=== PATIENT | female | born 1950 | race Caucasian/White ===

== ENCOUNTER 2017-07-18 09:51 | Emergency (ER) | payer MEDICARE ==
[~2017-07-18] VITALS: Ht 160 cm; Wt 115.9 kg
[2017-07-18 09:56] VITALS: TEMP 98.1
[2017-07-18] MEDS ORDERED: NORCO 325 MG-51 TAB PO (10:51)
[2017-07-18 10:54] VITALS: BP 167/77; PULSE 78
== END 2017-07-18 10:59 | disposition home or self-care (01) ==
LOC: COL.ER 09:51
DX: S20.212A Contusion of left front wall of thorax, initial encounter (principal); I10 Essential (primary) hypertension; E03.9 Hypothyroidism, unspecified; J45.909 Unspecified asthma, uncomplicated; E66.01 Morbid (severe) obesity due to excess calories; Z68.41 Body mass index [BMI] 40.0-44.9, adult; W31.89XA Contact with other specified machinery, initial encounter
CPT/HCPCS: A9284

== ENCOUNTER 2020-12-01 09:44 | Inpatient (IN) | payer MEDICARE ==
[~2020-12-01] VITALS: Ht 160 cm; Wt 119.7 kg
[~2020-12-01 09:44] MED LIST: NORCO 325 MG-51 TAB PO
[2020-12-01 11:03] LABS: EOS # 0.4 (0.0-0.7); EOS % 7.7 % (0-4.0); GRAN # 2.6 (1.4-6.5); GRAN % 54.6 % (42.2-75.2); HEMATOCRIT 39.5 % (37.0-47.0); HEMOGLOBIN 13.1 g/dl (12.5-16.0); LYMPH # 1.4 (1.2-3.4); LYMPH % 29.6 % (20.0-51.0); MEAN CELL VOLUME 105 fl (80.0-100.0); MEAN CORPUSCULAR HEMOGLOBIN 35 pg (27.0-31.0); MEAN CORPUSCULAR HGB CONC 33 g/dl (33.0-37.0); MEAN PLATELET VOLUME 10.4 fl (7.4-10.4); MONO # 0.4 (0.1-0.6); MONO % 7.9 % (1.7-9.3); PLATELET COUNT 124 K/mm3 (130-400); RED BLOOD COUNT 3.75 M/mm3 (4.10-5.30); REDCELL DISTRIBUTION WIDTH-CV 15.1 % (11.5-14.5)
[2020-12-01 11:08] LABS: ALBUMIN 2.9 gm/dL (3.5-5.0); BILIRUBIN,TOTAL 3.7 mg/dL (0.0-1.0); CREATININE, serum 0.42 (0.52-1.25); TOTAL PROTEIN 7.1 gm/dL (6.4-8.2)
--- NOTE | 2020-12-01 14:30 | NUR ---
Patient up from ER by mark anthony. Alert and oriented x 3. Patient oriented to room. Complains of right knee pain. Edema to BLE +2. Patient able to move RLE on bed but state she is unable to lift. Tremors noted to BUE and head and BLE. Patient states she has difficulty eating at home, daughter helps. Denies needs at this time.
[2020-12-01] MEDS ORDERED: ASPIRIN 32325 MG/TAB PO (14:31)
--- NOTE | 2020-12-01 14:50 | NUR ---
Post void residual of 175, purewick changed at this time, pericare provided.
[2020-12-01 15:14] VITALS: BP 136/72
[2020-12-01 16:22] LABS: CHOLESTEROL RISK RATIO 2.8
[2020-12-01 16:45] LABS: COLLECTION METHOD CLEAN CATCH
[2020-12-01 16:49] LABS: INR 1.5 (0.8-3.0); PROTHROMBIN TIME 16.3 SECONDS (9.7-12.8)
[2020-12-01 16:53] LABS: MUCOUS Present /lpf; PH 8 (5-8); SQUAMOUS EPITHELIAL 0-2 /hpf; URINE APPEARANCE Clear; URINE BACTERIA Rare /hpf; URINE BILIRUBIN Negative (NEGATIVE); URINE BLOOD Negative (NEGATIVE); URINE COLOR Yellow; URINE GLUCOSE Negative (NEGATIVE); URINE KETONE Negative (NEGATIVE); URINE LEUKOCYTE ESTERASE Negative (NEGATIVE); URINE NITRATE Negative (NEGATIVE); URINE PROTEIN(semi-quant) Negative (NEGATIVE); URINE RBC 0-2 /hpf; URINE WBC 0-2 /hpf
[2020-12-01 16:53] LABS: THYROID STIMULATING HORMONE 25.6 uIU/mL (0.465-4.680)
--- NOTE | 2020-12-01 17:02 | NUR ---
Contacted Leni Andrews, patient has irritation to groin, new order for desenex powder.
[2020-12-01 17:32] LABS: IRON,SERUM 69 ug/dL (35-150)
[2020-12-01 17:42] LABS: TOTAL IRON BINDING CAPACITY 346 ug/dL (265-497)
--- NOTE | 2020-12-01 17:47 | NUR ---
Dr. Barnes in to see patient.
[2020-12-01 17:55] LABS: BILIRUBIN,DIRECT 0.6 mg/dL (0.0-0.4)
--- NOTE | 2020-12-01 18:11 | NUR ---
Patient to CT by bed.
--- NOTE | 2020-12-01 18:18 | NUR ---
Patient doing well throughout this afternoon. Daughter remains at bedside. Denies needs at this time. Will report off to fast food shift supervisor.
--- NOTE | 2020-12-01 18:31 | NUR ---
Patient back from radiology by bed.
[2020-12-01 19:42] VITALS: BP 155/69; PULSE 73; TEMP 98.1
--- NOTE | 2020-12-01 23:07 | NUR ---
Patient to floor, oriented to self and self cares, however is a poor historian and unable to validate medictaions. Son is currently on vacation; states her daughter is not involved in her care
[2020-12-02] VITALS (7 sets, daily range): BP systolic 121–163; BP diastolic 56–66; PULSE 69–73; TEMP 97.8–98.5
--- NOTE | 2020-12-02 04:50 | NUR ---
PATIENT HAD RESTFUL EVENING, PURE WICK USED WITH PATIENT SATISFACTION. NO NEEDS EXPRESSED EXCEPT TO CLEAN, TURN AND REPOSITION PATIENT.
[2020-12-02 07:12] LABS: BASO % 0.2 % (0.0-2.0); EOS # 0.5 (0.0-0.7); EOS % 9.1 % (0-4.0); GRAN # 2.7 (1.4-6.5); GRAN % 52.6 % (42.2-75.2); HEMATOCRIT 37.7 % (37.0-47.0); HEMOGLOBIN 12.8 g/dl (12.5-16.0); LYMPH # 1.5 (1.2-3.4); LYMPH % 30.4 % (20.0-51.0); MEAN CELL VOLUME 105 fl (80.0-100.0); MEAN CORPUSCULAR HEMOGLOBIN 36 pg (27.0-31.0); MEAN CORPUSCULAR HGB CONC 34 g/dl (33.0-37.0); MEAN PLATELET VOLUME 10.4 fl (7.4-10.4); MONO # 0.4 (0.1-0.6); MONO % 7.5 % (1.7-9.3); PLATELET COUNT 121 K/mm3 (130-400); REDCELL DISTRIBUTION WIDTH-CV 15.1 % (11.5-14.5)
[2020-12-02 07:15] LABS: INR 1.5 (0.8-3.0)
[2020-12-02 07:23] LABS: ALBUMIN 2.9 gm/dL (3.5-5.0); CALCIUM 7.7 mg/dL (8.4-10.2); CREATININE, serum 0.49 (0.52-1.25); MAGNESIUM 2.1 mg/dL (1.6-2.3); POTASSIUM 3.8 mmol/L (3.4-5.0); TOTAL PROTEIN 6.8 gm/dL (6.4-8.2)
[2020-12-02 07:37] LABS: IRON,SERUM 102 ug/dL (35-150)
[2020-12-02 07:47] LABS: TOTAL IRON BINDING CAPACITY 340 ug/dL (265-497)
--- NOTE | 2020-12-02 11:10 | NUR ---
Pt to MRI at this time.
--- NOTE | 2020-12-02 14:08 | NUR ---
Half Section Ironer met with the patient to complete intake. The patient lives in [place] with , Archie and daughter, Oneida. The patient has a walker and sometimes has difficulties with ADLs, Oneida or Archie assist. The patient has not seen a PCP in about 20 years. She was agreeable to setting up at [facility]. The [place] [facility] The patient does not have advanced directives but was interested in DPOA-HC form. Form provided. The patient was interested in applying for Medicaid and had questions about applying for social security (disablity). Mariela Upton Financial Counselor consulted. The patient plans to return home at discharge with her family. PT/OT ordered. JOB contacted [facility] to set up an appointment. The appointment is on December 23 at 2:30 pm. JOB collaborated the above information with the community relations assistant. Discharge disposition at this time: Home with family.
[2020-12-02 17:35] LABS: HEPATITIS B CORE AB,TOTAL Negative (()); HEPATITIS B SURFACE ANTIBODY <2.0 (()); HEPATITIS B SURFACE ANTIGEN Negative (Negative); HEPATITIS C VIRUS ANTIBODY Negative (Negative)
--- NOTE | 2020-12-02 18:39 | NUR ---
Pt had uneventful day, rested in bed between PT sessions. Ambulated with assistance of one and walker. Pain to knee controlled with Voltaren gel and monica wrap. Pure wick in place. Good UOP. No needs at this time. Call light within reach.
--- NOTE | 2020-12-02 21:14 | NUR ---
Patient sitting up in bed upon enter the room. Patient alert and oriented. Patient denies SOB, headache, dizziness, N/V or diarrhea. Patient reports pain to her right knee area 3 or 4 out of 10. PRN Tramadol given per pain. Voltaren gel applied to right knee area. All sheduled meds given per MAR. Purewick in place and draining clear yellow urine. Call light within reach. Patient denies any needs at this time.
[2020-12-03 03:47] VITALS: BP 126/68; PULSE 69; TEMP 97.8
--- NOTE | 2020-12-03 06:11 | NUR ---
Patient rested well throughout the night. VS stable. No acute distress noted. Call light within reach. Will give report to day shift nurse.
[2020-12-03 07:50] VITALS: BP 133/61; PULSE 73; TEMP 98
--- NOTE | 2020-12-03 09:20 | NUR ---
PT AOX4, PLEASANT, AIR QUALITY SPECIALIST EQUAL, STEADY GAIT WITH WALKER, BED ALARM ON, ASSISTED TO BATHROOM, EDUCATED ON MEDICATIONS GIVEN AND EDUCATED ON THEM, IN ROOM, CALL LIGHT WITHIN REACH, FRESH ICE WATER BROUGHT IN, PT REPORTS EDEMA IN BLE LESSENED, PT REPORTS NO PAIN IN BLE AT THIS TIME, PT REFUSED VOLTAREN GEL FOR KNEES AT THIS TIME.
[2020-12-03] MEDS ORDERED: ASPIRIN 81M81 MG/TA2 PO (09:56)
[2020-12-03] MEDS ORDERED: ALDACTONE50 MG PO (09:56)
[2020-12-03] MEDS ORDERED: VOLTAREN GEL 1%1 TU TP (09:58)
[2020-12-03] MEDS ORDERED: ULTRAM 50MG TAB50 MG PO (09:58)
[2020-12-03] MEDS ORDERED: LASIX 40MG TABL40 MG PO (09:58)
[2020-12-03] MEDS ORDERED: SYNTHROID0.05 MG/TA PO (09:59)
[2020-12-03] MEDS ORDERED: DESENEX TP (10:00)
[2020-12-03] MEDS ORDERED: B-121000 MCG PO (10:01)
--- NOTE | 2020-12-03 12:15 | NUR ---
PT DISCHARGE EDUCATION PROVIDED, IV REMOVED, PT ESCORTED OUT VIA WHEELCHAIR. EDUCATION PACKET LEFT AT HOSPITAL, CALLED PT AND PT'S WILL DOCK BOSS TOMORROW IN AM. PT HAD NO OTHER QUESTIONS OR CONCERNS.
--- NOTE | 2020-12-03 13:03 | NUR ---
Maintenance Mechanic Technician attended clinical rounds with the team and patient to discharge today. SW met with patient about discharge planning and Home Health services. Patient is interested in HH and selected [facility]. SW explained to patient that HH would not be able to see her until her appointment with Chiqui on 12/23. SW stressed the importance of primary care follow up and patient verbalized understanding. SW also discussed new medications with patient who states she has money to pay for them today. JOB again stressed the importance of follow up with both primary care and Mariela, Financial Counselor. JOB contacted Mariela who advised she will follow up with patient on Medicaid and Social Security. JOB then contacted Elizabeth at [facility] and faxed referral/discharge orders. Discharge Plan: Home with [facility].
--- NOTE | 2020-12-03 13:18 | NUR ---
First visit from the engine inspector. No needs right now.
[2020-12-04 03:08] LABS: HEPATITIS AB (HAV) IGG INDEX 0.71 Index (<=1.00)
[2020-12-04 15:23] LABS: ANTISMOOTH MUSCLE ANTIBODY Negative (Negative)
[2020-12-08 13:09] LABS: A/G RATIO (PEP) 0.69 (()); BETA GLOBULINS (PEP) 0.8 g/dL (0.7-1.2)
[2020-12-08 15:13] LABS: CERULOPLASMIN 24 mg/dL (20-60)
[2021-05-07] MEDS ORDERED: OMNICEF 300MG300 MG PO (10:25)
[2021-05-07] MEDS ORDERED: PROTONIX 40MG T40 MG PO (10:26)
[2021-05-07] MEDS ORDERED: LEVOXYL0.075 MG PO (10:28)
[2021-07-25] MEDS ORDERED: VITAMIN D (10:25)
[2021-07-25] MEDS ORDERED: ASPIRIN 81M81 MG/TA2 PO (10:26)
[2021-07-25] MEDS ORDERED: CENTRUM SILVER1 TA2 PO (10:26)
== END 2020-12-03 12:15 | disposition home health service (06) | DRG 433 ==
LOC: COL.ER 09:44 → MEDICAL 13:14
PROVIDERS: Internal Medicine Gastroenterology; Physician Assistant; ADMIT Family Medicine
DX: K74.60 Unspecified cirrhosis of liver (principal); K76.6 Portal hypertension; I85.10 Secondary esophageal varices without bleeding; I50.32 Chronic diastolic (congestive) heart failure; Z68.42 Body mass index [BMI] 45.0-49.9, adult; K75.81 Nonalcoholic steatohepatitis (NASH); D69.6 Thrombocytopenia, unspecified; D75.89 Other specified diseases of blood and blood-forming organs; E53.8 Deficiency of other specified B group vitamins; I11.0 Hypertensive heart disease with heart failure; M17.11 Unilateral primary osteoarthritis, right knee; G25.2 Other specified forms of tremor; E66.01 Morbid (severe) obesity due to excess calories; E03.9 Hypothyroidism, unspecified; R16.1 Splenomegaly, not elsewhere classified; G62.9 Polyneuropathy, unspecified; R29.6 Repeated falls; G31.9 Degenerative disease of nervous system, unspecified; G89.29 Other chronic pain; Z91.81 History of falling; N39.41 Urge incontinence
CPT/HCPCS: 99223-AI; 99233-AI; 99239; A9585; J3420; Q9967

== ENCOUNTER 2021-03-13 06:25 | Inpatient (IN) | payer MEDICARE ==
[~2021-03-13] VITALS: Ht 160.1 cm; Wt 114.1 kg
[2021-03-13] VITALS (9 sets, daily range): BP systolic 110–142; BP diastolic 43–83; PULSE 64–84; TEMP 97.9–98.1
[~2021-03-13 06:25] MED LIST changes: +ALDACTONE50 MG PO; +ASPIRIN 32325 MG/TAB PO; +ASPIRIN 81M81 MG/TA2 PO; +B-121000 MCG PO; +DESENEX TP; +LASIX 40MG TABL40 MG PO; +SYNTHROID0.05 MG/TA PO; +ULTRAM 50MG TAB50 MG PO; +VOLTAREN GEL 1%1 TU TP
[2021-03-13] MEDS ORDERED: IMODIUM A-D2 MG PO (06:45)
[2021-03-13 07:05] LABS: EOS # 0.8 (0.0-0.7); EOS % 13.3 % (0-4.0); GRAN # 2.5 (1.4-6.5); GRAN % 41.8 % (42.2-75.2); HEMATOCRIT 37.9 % (37.0-47.0); LYMPH % 34.4 % (20.0-51.0); MEAN CELL VOLUME 94 fl (80.0-100.0); MEAN CORPUSCULAR HEMOGLOBIN 30 pg (27.0-31.0); MEAN CORPUSCULAR HGB CONC 32 g/dl (33.0-37.0); MEAN PLATELET VOLUME 11.7 fl (7.4-10.4); MONO # 0.6 (0.1-0.6); MONO % 10.3 % (1.7-9.3); PLATELET COUNT 133 K/mm3 (130-400); RED BLOOD COUNT 4.05 M/mm3 (4.10-5.30); REDCELL DISTRIBUTION WIDTH-CV 16.4 % (11.5-14.5)
[2021-03-13 07:11] LABS: ALANINE AMINOTRANSFERASE 29 U/L (4-34); ALBUMIN 2.9 gm/dL (3.5-5.0); ALKALINE PHOSPHATASE 215 U/L (50-136); ANION GAP 7 mmol/L (7-16); AST,SGOT 61 U/L (15-37); BILIRUBIN,TOTAL 4.9 mg/dL (0.0-1.0); BLOOD UREA NITROGEN 5 mg/dL (7-17); CARBON DIOXIDE 20 mmol/L (22-30); CHLORIDE 112 mmol/L (98-107); CREATININE, serum 0.52 (0.52-1.25); GLUCOSE 91 mg/dL (74-106); SODIUM 139 mmol/L (137-145); TOTAL PROTEIN 7.2 gm/dL (6.4-8.2)
[2021-03-13 07:13] LABS: POTASSIUM 2.8 mmol/L (3.4-5.0)
[2021-03-13 08:05] LABS: CREATINE KINASE 67 U/L (30-135); MAGNESIUM 1.9 mg/dL (1.6-2.3)
[2021-03-13 08:06] LABS: C-REACTIVE PROTEIN < 0.5 mg/dL (0.0-0.9)
[2021-03-13 08:27] LABS: TROPONIN-I 0.026 ng/mL (0.000-0.035)
[2021-03-13] MEDS ORDERED: DIUREX PO (12:25)
--- NOTE | 2021-03-13 13:46 | NUR ---
elevated troponin reported to Leni BLACK, requested diet
--- NOTE | 2021-03-13 14:04 | NUR ---
CONSULT CALLED TO DR. APARICIO
--- NOTE | 2021-03-13 15:19 | NUR ---
RECIEVED VERBAL ORDERS FROM H[place]EN TO STOP CARDIZEM DRIP 2HR AFTER SOTALOL DOSE ADMINISTRATION
--- NOTE | 2021-03-13 17:49 | NUR ---
Pt refused meal delivered, mashed potatoes ordered in place of meal. 30% of mashed potatoes eaten.
--- NOTE | 2021-03-13 18:11 | NUR ---
Pt incontinent, garethwick utilized and placed at this time.
--- NOTE | 2021-03-13 18:30 | NUR ---
ERWIN MUHAMMAD DC'Kayleigh 1729, DESTINY BUTLER ON PT, LEGS ELEVATED, PT HAS TREMORS CHRONICALLY, PT DENIES PAIN/SOB, EATING DINNER BUT REPORTS ITS HARD TO FEED HERSELF DUE TO TREMORS, NO OTHER NEEDS AT THIS TIME.
--- NOTE | 2021-03-13 20:00 | NUR ---
Report received, assumed care for film processing shift supervisor. Assessment complete. A&Ox3-drowsy. Denies pain/nausea/shortness of breath/chest pain. TELE showing SR. Noted to have a stage 1 ulcer to right buttock. Plan of care discussed for this shift to include HS meds/calling for questions/concerns. Verbalizes understanding/denies needs. Call light in reach. Will monitor.
--- NOTE | 2021-03-14 03:46 | NUR ---
Called with c/o pain to left forearm INT. Noted to be bruised above and around site. DCd at this time cath intact. Tolerated well.
[2021-03-14 04:13] VITALS: BP 122/47; PULSE 63; TEMP 98.1
--- NOTE | 2021-03-14 06:03 | NUR ---
Rested well later this shift after receiving phenergan for nausea. VS remain stable. Denies nausea/shortness of breath/chest pain. Tele showed SR this shift. No s/s of distress noted at this time. Call light in reach. Will monitor.
[2021-03-14 06:12] LABS: HEMOGLOBIN 10.1 g/dl (12.5-16.0); MEAN CELL VOLUME 93 fl (80.0-100.0); MEAN CORPUSCULAR HEMOGLOBIN 29 pg (27.0-31.0); MEAN CORPUSCULAR HGB CONC 31 g/dl (33.0-37.0); MEAN PLATELET VOLUME 10.3 fl (7.4-10.4); PLATELET COUNT 124 K/mm3 (130-400); RED BLOOD COUNT 3.47 M/mm3 (4.10-5.30); REDCELL DISTRIBUTION WIDTH-CV 16.3 % (11.5-14.5)
[2021-03-14 06:14] LABS: HEMATOCRIT 32.4 % (37.0-47.0)
[2021-03-14 06:27] LABS: CALCIUM 7.4 mg/dL (8.4-10.2); CREATININE, serum 0.53 (0.52-1.25); MAGNESIUM 1.8 mg/dL (1.6-2.3)
[2021-03-14 06:29] LABS: POTASSIUM 2.9 mmol/L (3.4-5.0)
[2021-03-14 07:15] VITALS: BP 116/49; PULSE 64; TEMP 98.1
--- NOTE | 2021-03-14 07:50 | NUR ---
ASSISTED PT WITH REPOSITIONING IN BED, PT AOX3, PT PLEASANT, REPORTS PAIN IN LOW BACK, MEDICATIONS GIVEN, ASSESSMENT PERFORMED, NO OTHER NEEDS AT THIS TIME
--- NOTE | 2021-03-14 08:17 | NUR ---
NOTIFIED PHYSICIAN OF CRITICAL POTASSIUM, ORDERED TO PLACE PT ON POTASSIUM PROTOCOL, ORDER ENTERED
--- NOTE | 2021-03-14 11:47 | NUR ---
Sw met with the pt who stated her preference to return home with her daughter when she is medically stable. The pt lives at home with her daughter, Oneida (ph # [phone]). The pt states she is independent, but uses a walker. The pt informed Sw that she uses no DME. The pt informed Sw that she does not have a DPOA-HC at this time and would like to speak with Oneida first. She informed Sw that she does not have a PCP, but would like a list of them and gets her medications from [facility]. The pt informed Annemarie that she would like to get on medicare, but she would like to wait for her Oneida to explain more to me when she comes tomorrow. Sw will follow up with the pt tomorrow and Oneida to talk about PCP and medicare application. No other needs stated at this time. Sw to follow up as needed. D/c: Home with Daughter.
[2021-03-14 12:00] VITALS: BP 116/52; PULSE 63; TEMP 98.3
[2021-03-14 15:32] VITALS: BP 111/51; PULSE 64; TEMP 98.4
--- NOTE | 2021-03-14 17:13 | NUR ---
PT PLEASANT, AOX4, REPORTS SKIN ITCHING AND "RASH" BUT NO RASH NOTED. EDUCATED HER ON EFFECTS OF INC BILIRUBIN. PT REPOSITIONS HERSELF IN BED WHEN BED IS PLACED IN [place] POSITION. PT EATING WELL, DENIES PAIN/N/V/D, NO OTHER NEEDS. RAC INT CDI W/O ERYTHEMA NO OTHER NEEDS.
[2021-03-14 18:36] VITALS: BP 125/58; PULSE 69
--- NOTE | 2021-03-14 18:51 | NUR ---
RECIEVED CALL FROM TELE THAT PT IS IN AND OUT OF AFLUTTER. PT DENIES CHEST PAIN, SOB, AND LIGHT HEADEDNESS, VITALS OBTAINED AND NORMAL, STAT EKG ORDER PLACED . NALLELY NOTIFIED AND ORDERED LABS TOLD TO NOTIFY CARDIOLOGY IF THEY WOULD LIKE TO ADD ORDERS. DR. MELGOZA CALLED, NOTIFIED HIM OF SITUATION AND ORDERS PLACED AND HE HAD NO ORDERS TO ADD. NO OTHER NEEDS
[2021-03-14 19:45] VITALS: BP 127/47; PULSE 72; TEMP 98.4
[2021-03-14 20:01] LABS: HEMOGLOBIN 10.9 g/dl (12.5-16.0)
[2021-03-14 20:03] LABS: CALCIUM 7.7 mg/dL (8.4-10.2); CREATININE, serum 0.62 (0.52-1.25); MAGNESIUM 1.7 mg/dL (1.6-2.3); POTASSIUM 3.3 mmol/L (3.4-5.0)
[2021-03-14 20:05] LABS: HEMATOCRIT 34.8 % (37.0-47.0)
--- NOTE | 2021-03-14 23:06 | NUR ---
Shift assessment completed. Patient A/O x3. Patient denies any chest pain or discomfort. Denies SOB or dyspnea. BLE swollen. Elevated BLE on pillows. Right forearm IV site C/D/I. All scheduled meds given per OCT. Call light within reach. Will continue to monitor.
[2021-03-15] VITALS (7 sets, daily range): BP systolic 105–151; BP diastolic 44–120; PULSE 65–70; TEMP 97.7–98.8
--- NOTE | 2021-03-15 07:00 | NUR ---
Report with CATHRYN Bess. Pt resting in bed, awake and alert, denies needs at this time. Purewick catheter in place. Call light in reach.
[2021-03-15 07:11] LABS: EOS # 0.7 (0.0-0.7); EOS % 13.7 % (0-4.0); GRAN # 1.8 (1.4-6.5); GRAN % 34.5 % (42.2-75.2); HEMOGLOBIN 10.5 g/dl (12.5-16.0); LYMPH # 2.1 (1.2-3.4); LYMPH % 41.8 % (20.0-51.0); MEAN CELL VOLUME 93 fl (80.0-100.0); MEAN CORPUSCULAR HEMOGLOBIN 29 pg (27.0-31.0); MEAN CORPUSCULAR HGB CONC 32 g/dl (33.0-37.0); MEAN PLATELET VOLUME 11.8 fl (7.4-10.4); MONO # 0.5 (0.1-0.6); MONO % 9.8 % (1.7-9.3); PLATELET COUNT 121 K/mm3 (130-400); RED BLOOD COUNT 3.59 M/mm3 (4.10-5.30); REDCELL DISTRIBUTION WIDTH-CV 16.1 % (11.5-14.5)
[2021-03-15 07:18] LABS: HEMATOCRIT 33.2 % (37.0-47.0)
[2021-03-15 07:19] LABS: CALCIUM 7.3 mg/dL (8.4-10.2); CREATININE, serum 0.57 (0.52-1.25); POTASSIUM 3.3 mmol/L (3.4-5.0)
--- NOTE | 2021-03-15 09:00 | NUR ---
Assessment complete. Pt resting in bed, A&O x 4, denies pain at this time. Saline lock IV to right forearm patent without s/s of complications. Purewick catheter in place with low suction, dark yellow urine in cannister. Dressing over ulcer on right buttock CDI. Physical assessment otherwise unremarkable. No further needs reported. Call light in reach.
--- NOTE | 2021-03-15 18:50 | NUR ---
Report with CATHRYN Aleman. Pt resting in bed with eyes closed, resp even and unlabored. Call light in reach.
--- NOTE | 2021-03-15 21:43 | NUR ---
PATIENT IS RESTING IN BED.DUE MEDS GIVEN.DENIES PAIN.PATIENT HAS A PUREWICK IN PLACE.SAFETY MEASURES MAINTAINED.NO OTHER NEEDS AT THIS TIME.
[2021-03-16] VITALS (9 sets, daily range): BP systolic 114–141; BP diastolic 47–82; PULSE 63–72; TEMP 98–98.2
--- NOTE | 2021-03-16 05:34 | NUR ---
PATIENT HAD A CALM NIGHT.DENIES PAIN.PATIENT IS WORRIED ABOUT HOW THE STRESS TEST WILL BE DONE.TRIED TO EXPLAIN BUT STILL NEEDS MORE EDUCATION ABOUT IT BEFORE ITS DONE.SAFETY MEASURES IN PLACE.NO OTHER NEEDS AT THIS TIME.
[2021-03-16 07:18] LABS: EOS # 0.7 (0.0-0.7); EOS % 13.7 % (0-4.0); GRAN # 1.8 (1.4-6.5); GRAN % 38.6 % (42.2-75.2); HEMOGLOBIN 10.5 g/dl (12.5-16.0); LYMPH # 1.8 (1.2-3.4); LYMPH % 37.2 % (20.0-51.0); MEAN CELL VOLUME 93 fl (80.0-100.0); MEAN CORPUSCULAR HEMOGLOBIN 30 pg (27.0-31.0); MEAN CORPUSCULAR HGB CONC 32 g/dl (33.0-37.0); MEAN PLATELET VOLUME 10.8 fl (7.4-10.4); MONO # 0.5 (0.1-0.6); MONO % 10.3 % (1.7-9.3); PLATELET COUNT 127 K/mm3 (130-400); RED BLOOD COUNT 3.54 M/mm3 (4.10-5.30); REDCELL DISTRIBUTION WIDTH-CV 16.1 % (11.5-14.5)
[2021-03-16 07:29] LABS: CALCIUM 7.4 mg/dL (8.4-10.2); CREATININE, serum 0.56 (0.52-1.25); POTASSIUM 3.1 mmol/L (3.4-5.0)
--- NOTE | 2021-03-16 08:20 | NUR ---
This RN received a call from nuclear medicine stating they would be coming to get the patient around 0830 to perform a lexiscan. They asked if the patient could have a pull-up put on for her incontinence since they will not be able to use a purewik. This RN and the PCT provided incontinent care for the patient and placed a clean pull-up with a pad. Patient did well moving in the bed... This RN also discussed the placement of the loop recorder with the patient. Printed educational material was provided. Consent was signed for the procedure. Medications currently being held as the patient is NPO for her loop recorder placement.
[2021-03-16] MEDS ORDERED: BETAPACE 80MG80 MG PO (12:02)
[2021-03-16] MEDS ORDERED: ALDACTONE50 MG PO (12:03)
[2021-03-16] MEDS ORDERED: ASPIRIN 81M81 MG/TA2 PO ×2 (12:03)
[2021-03-16] MEDS ORDERED: LASIX 40MG TABL40 MG PO (12:04)
[2021-03-16] MEDS ORDERED: SYNTHROID0.05 MG/TA PO ×2 (12:04)
--- NOTE | 2021-03-16 12:34 | NUR ---
Initial visit attempt; Patient out of her room. Brim Raiser left her card letting patient know Brim Raiser was available for a visit.
[2021-03-16] MEDS ORDERED: CEPHALEXIN500 M1 PO (13:19)
--- NOTE | 2021-03-16 14:06 | NUR ---
The patient is ready to d/c today. The patient does not have a PCP. She has been scheduled at [facility] in [place] in the past, but did not go to her appointments. She is needing medication refills. JOB met with the patient to review d/c plan. The patient plans to return home with her daughter, Oneida, and son-in-law, Davonte. The patient reports that she will be able to afford her medications. The patient only has Medicare Part A. JOB discussed getting set up at [facility] again and the importance of going to her appointments. The patient verbalized understanding. JOB contacted [facility] in [place]. The earliest they could get her in was on 05/14 at 1020. JOB notified the decision unit rn and the PA. The patient is going to need to get into a provider sooner to be able to get her meds refilled. The patient's son-in-law, Davonte, then arrived to the hospital. JOB met with the patient and Elgin and updated him on the above. JOB discussed getting the patient established at the [facility] in [facility]. Elgin reports that they are open to getting the patient set up with anything she needs and would be able to transport her to the [facility] in [place]. JOB contacted and secured the patient an appointment on Tuesday, 03/26, at 1500. JOB updated Elgin of the appointment and wrote the changed appointment down on the patient's d/c orders. Davonte verbalized understanding. JOB faxed the patient's records to [facility] in [place]. The patient discharge back home with her daughter and son-in-law today, 03/16. No additional needs at this time.
[2021-05-07] MEDS ORDERED: OMNICEF 300MG300 MG PO (10:25)
[2021-05-07] MEDS ORDERED: PROTONIX 40MG T40 MG PO (10:26)
[2021-05-07] MEDS ORDERED: LEVOXYL0.075 MG PO (10:28)
[2021-07-25] MEDS ORDERED: VITAMIN D (10:25)
[2021-07-25] MEDS ORDERED: ASPIRIN 81M81 MG/TA2 PO (10:26)
[2021-07-25] MEDS ORDERED: CENTRUM SILVER1 TA2 PO (10:26)
[2021-07-30] MEDS ORDERED: LACTULOSE10 GM/153 PO (09:40)
== END 2021-03-16 14:10 | disposition home or self-care (01) | DRG 260 ==
LOC: COL.ER 06:25 → MEDICAL 08:34
PROVIDERS: Emergency Medicine Emergency Medical Services; Nurse Practitioner Family; Physician Assistant; ADMIT Student in an Organized Health Care Education/Training Program
PROC: 0JH632Z Insertion of Monitoring Device into Chest Subcutaneous Tissue and Fascia, Percutaneous Approach (ICD-10-PCS; principal; 2021-03-16)
DX: I48.91 Unspecified atrial fibrillation (principal); I50.23 Acute on chronic systolic (congestive) heart failure; I21.A1 Myocardial infarction type 2; A69.20 Lyme disease, unspecified; E87.6 Hypokalemia; D69.6 Thrombocytopenia, unspecified; E03.9 Hypothyroidism, unspecified; I11.0 Hypertensive heart disease with heart failure; E66.01 Morbid (severe) obesity due to excess calories; R32 Unspecified urinary incontinence; E53.8 Deficiency of other specified B group vitamins; G25.2 Other specified forms of tremor; E87.70 Fluid overload, unspecified; M17.11 Unilateral primary osteoarthritis, right knee; D75.89 Other specified diseases of blood and blood-forming organs; K75.81 Nonalcoholic steatohepatitis (NASH); L89.312 Pressure ulcer of right buttock, stage 2; T43.615A Adverse effect of caffeine, initial encounter; Z86.16 Personal history of COVID-19; K74.60 Unspecified cirrhosis of liver; Z98.51 Tubal ligation status; Z90.710 Acquired absence of both cervix and uterus; Z90.49 Acquired absence of other specified parts of digestive tract; Z79.82 Long term (current) use of aspirin
CPT/HCPCS: 99223-AI; 99233-AI; 99239; A9500; C1764; J1650; J1940; J2550; J2785; J3475; J3480

== ENCOUNTER 2021-03-26 04:21 | Emergency (ER) | payer SELFPAY ==
[~2021-03-26 04:21] MED LIST changes: +BETAPACE 80MG80 MG PO; +CEPHALEXIN500 M1 PO; +DIUREX PO; +IMODIUM A-D2 MG PO
[2021-03-26 04:36] LABS: EOS # 0.4 (0.0-0.7); EOS % 9.7 % (0-4.0); GRAN # 2.2 (1.4-6.5); GRAN % 50.4 % (42.2-75.2); HEMOGLOBIN 11.6 g/dl (12.5-16.0); LYMPH # 1.3 (1.2-3.4); LYMPH % 28.4 % (20.0-51.0); MEAN CELL VOLUME 91 fl (80.0-100.0); MEAN CORPUSCULAR HEMOGLOBIN 29 pg (27.0-31.0); MEAN CORPUSCULAR HGB CONC 32 g/dl (33.0-37.0); MEAN PLATELET VOLUME 12.9 fl (7.4-10.4); MONO # 0.5 (0.1-0.6); MONO % 11.3 % (1.7-9.3); PLATELET COUNT 142 K/mm3 (130-400); RED BLOOD COUNT 4.03 M/mm3 (4.10-5.30); REDCELL DISTRIBUTION WIDTH-CV 16.4 % (11.5-14.5)
[2021-03-26 04:38] LABS: HEMATOCRIT 36.6 % (37.0-47.0)
[2021-03-26 05:04] LABS: ALBUMIN 2.8 gm/dL (3.5-5.0); BILIRUBIN,TOTAL 4.3 mg/dL (0.0-1.0); CALCIUM 7.9 mg/dL (8.4-10.2); CREATININE, serum 0.57 (0.52-1.25); MAGNESIUM 1.9 mg/dL (1.6-2.3); TOTAL PROTEIN 6.7 gm/dL (6.4-8.2); TROPONIN-I 0.013 ng/mL (0.000-0.035)
[2021-03-26 08:40] VITALS: BP 145/68; PULSE 63
[2021-05-07] MEDS ORDERED: OMNICEF 300MG300 MG PO (10:25)
[2021-05-07] MEDS ORDERED: PROTONIX 40MG T40 MG PO (10:26)
[2021-05-07] MEDS ORDERED: LEVOXYL0.075 MG PO (10:28)
[2021-07-25] MEDS ORDERED: VITAMIN D (10:25)
[2021-07-25] MEDS ORDERED: ASPIRIN 81M81 MG/TA2 PO (10:26)
[2021-07-25] MEDS ORDERED: CENTRUM SILVER1 TA2 PO (10:26)
[2021-07-30] MEDS ORDERED: LACTULOSE10 GM/153 PO (09:40)
== END 2021-03-26 08:55 | disposition home or self-care (01) ==
LOC: COL.ER 04:21
PROVIDERS: Emergency Medicine
DX: R06.4 Hyperventilation (principal); R07.89 Other chest pain; M54.2 Cervicalgia; R20.2 Paresthesia of skin; I48.91 Unspecified atrial fibrillation; F41.9 Anxiety disorder, unspecified; Z79.899 Other long term (current) drug therapy; Z79.82 Long term (current) use of aspirin
CPT/HCPCS: J1630; J1885; Q9967

== ENCOUNTER 2021-11-27 20:20 | Emergency (ER) | payer SELFPAY ==
[~2021-11-27] VITALS: Ht 157.5 cm; Wt 114.1 kg
[~2021-11-27 20:20] MED LIST changes: +CENTRUM SILVER1 TA2 PO; +LACTULOSE10 GM/153 PO; +LEVOXYL0.075 MG PO; +OMNICEF 300MG300 MG PO; +PROTONIX 40MG T40 MG PO; +VITAMIN D
[2021-11-27 20:28] VITALS: TEMP 97.2
[2021-11-27 21:28] VITALS: BP 142/80; PULSE 80
== END 2021-11-27 21:25 | disposition home or self-care (01) ==
LOC: COL.ER 20:20
DX: S61.012A Laceration without foreign body of left thumb without damage to nail, initial encounter (principal); Z23 Encounter for immunization; W26.8XXA Contact with other sharp object(s), not elsewhere classified, initial encounter

== ENCOUNTER 2022-11-13 11:43 | Observation (INO) | payer MEDICARE ==
[~2022-11-13] VITALS: Ht 157.5 cm; Wt 126.5 kg
[2022-11-13 12:11] LABS: BASO % 0.1 % (0.0-2.0); EOS # 0.4 K/mm3 (0.0-0.7); EOS % 4.7 % (0.0-4.0); GRAN # 5.1 K/mm3 (1.4-6.5); HEMATOCRIT 38.6 % (37.0-47.0); HEMOGLOBIN 13.5 g/dl (12.5-16.0); LYMPH # 1.7 K/mm3 (1.2-3.4); LYMPH % 21.4 % (20.0-51.0); MEAN CELL VOLUME 101 fl (80.0-100.0); MEAN CORPUSCULAR HEMOGLOBIN 35 pg (27-31); MEAN CORPUSCULAR HGB CONC 35 g/dl (33.0-37.0); MEAN PLATELET VOLUME 10.3 fl (7.4-10.4); MONO # 0.8 K/mm3 (0.1-0.6); MONO % 10.3 % (1.7-9.3); PLATELET COUNT 143 K/mm3 (130-400); RED BLOOD COUNT 3.82 M/mm3 (4.10-5.30); REDCELL DISTRIBUTION WIDTH-CV 14.3 % (11.5-14.5)
[2022-11-13 12:19] LABS: INR 1.4 (0.8-3.0)
[2022-11-13 12:49] LABS: ALBUMIN 2.9 gm/dL (3.4-4.8); BILIRUBIN,TOTAL 3.7 mg/dL (0.2-1.2); CALCIUM 8.7 mg/dL (8.4-10.2); CREATININE, serum 0.82 mg/dL (0.57-1.11); POTASSIUM 4.1 mmol/L (3.5-4.5); TOTAL PROTEIN 6.1 gm/dL (6.2-8.1)
[2022-11-13 15:36] VITALS: BP 128/51; PULSE 66; TEMP 97.6
[2022-11-13] MEDS ORDERED: SYNTHROID0.125 MG/T PO (16:00)
[2022-11-13] MEDS ORDERED: ALDACTONE50 MG PO (16:02)
[2022-11-13] MEDS ORDERED: VITAMIN D 400400 IU PO (16:03)
[2022-11-13] MEDS ORDERED: XIFAXAN550 MG PO (16:04)
[2022-11-13] MEDS ORDERED: NATURAL IRON65 MG PO (16:05)
--- NOTE | 2022-11-13 16:32 | NUR ---
PT ADMITTED TO MEDICAL UNIT. ADMISSION INTAKE AND ASSESSMENT COMPLETED. MED REC UPDATED. PT ORIENTED TO ROOM. CALL LIGHT WITHIN REACH, BED ALARMS IN PLACE. PT DENIES ANY PAIN OR NEEDS. PT REQUESTING PUREWICK AT THIS TIME. INSTURCTED PT TO TRY USING BEDSIDE COMMODE FIRST, IF UNSUCCESSFUL WE CAN ATTEMPT PUREWICK USE. CONTINUING TO MONITOR.
--- NOTE | 2022-11-13 19:46 | NUR ---
assisted pt to bathroom, gait steady w 1 assist with walker. vss and tele in place. pt tolerating clears. heat rash present to ble. INT to RAC. pt denies needs at this time. call light in reach.
[2022-11-13 20:00] VITALS: BP 128/59; PULSE 70; TEMP 98.3
[2022-11-14 00:21] VITALS: BP 121/54; PULSE 68; TEMP 98.1
[2022-11-14 04:06] VITALS: BP 128/54; PULSE 68; TEMP 98.4
[2022-11-14 06:51] LABS: BASO % 0.1 % (0.0-2.0); EOS # 0.4 K/mm3 (0.0-0.7); EOS % 4.3 % (0.0-4.0); GRAN # 5.9 K/mm3 (1.4-6.5); GRAN % 66.3 % (42.2-75.2); HEMOGLOBIN 12.2 g/dl (12.5-16.0); LYMPH # 1.8 K/mm3 (1.2-3.4); LYMPH % 19.9 % (20.0-51.0); MEAN CELL VOLUME 100 fl (80.0-100.0); MEAN CORPUSCULAR HEMOGLOBIN 36 pg (27-31); MEAN CORPUSCULAR HGB CONC 36 g/dl (33.0-37.0); MEAN PLATELET VOLUME 10.3 fl (7.4-10.4); MONO # 0.8 K/mm3 (0.1-0.6); MONO % 8.8 % (1.7-9.3); PLATELET COUNT 133 K/mm3 (130-400); RED BLOOD COUNT 3.43 M/mm3 (4.10-5.30); REDCELL DISTRIBUTION WIDTH-CV 14.4 % (11.5-14.5)
[2022-11-14 06:57] LABS: HEMATOCRIT 34.3 % (37.0-47.0)
[2022-11-14 07:02] LABS: CALCIUM 8.2 mg/dL (8.4-10.2); CREATININE, serum 0.66 mg/dL (0.57-1.11); POTASSIUM 4.2 mmol/L (3.5-4.5)
[2022-11-14 08:13] VITALS: BP 124/53; PULSE 69; TEMP 98
--- NOTE | 2022-11-14 10:12 | NUR ---
PT RESTING IN BED UPON ENTERING ROOM. MORNING MEDICATIONS GIVEN. SHIFT ASSESSMENT COMPLETED. PT DENIES ANY PAIN OR NEEDS THIS MORNING. IVF INFUSING. CALL LIGHT WITHIN REACH. WILL CONTINUE TO MONITOR.
--- NOTE | 2022-11-14 12:33 | NUR ---
DISCHARGE INSTRUCTIONS GIVEN, AT BEDSIDE, ALL QUESTIONS ANSWERED. IV D/C. TELE D/C. PT BELONGS PACKED, ESCORTED DOWN BY [facility]IA [facility] STAFF. WILL D/C FROM SYSTEM.
--- NOTE | 2022-11-14 12:40 | NUR ---
THIS RN CONTACTED PT DAUGHTER, AMY, TO NOTIFY HER OF PT BEING +NOROVIRUS. INSTRUCED DAUGHTER TO ENCOURAGE FLUID INTAKE, WASH HANDS AFTER CONTACT WITH FECES, AND DISINFECT SURFACES FOR THE NEXT TWO WEEKS. DAUGHTER STATES SHE UNDERSTANDS PROTOCOL.
== END 2022-11-14 12:35 | disposition home or self-care (01) ==
LOC: COL.ER 11:43 → MEDICAL 13:39
PROVIDERS: Physician Assistant; ADMIT Student in an Organized Health Care Education/Training Program
DX: A08.11 Acute gastroenteropathy due to Norwalk agent (principal); K52.9 Noninfective gastroenteritis and colitis, unspecified; R19.5 Other fecal abnormalities; K62.5 Hemorrhage of anus and rectum; K76.0 Fatty (change of) liver, not elsewhere classified; I48.91 Unspecified atrial fibrillation; I50.32 Chronic diastolic (congestive) heart failure; E80.6 Other disorders of bilirubin metabolism; I85.10 Secondary esophageal varices without bleeding; I11.0 Hypertensive heart disease with heart failure; E66.01 Morbid (severe) obesity due to excess calories; R32 Unspecified urinary incontinence; G25.2 Other specified forms of tremor; E03.9 Hypothyroidism, unspecified; Z79.890 Hormone replacement therapy; Z79.899 Other long term (current) drug therapy
CPT/HCPCS: C9113; J7030; J7120

== ENCOUNTER 2022-11-20 11:03 | Inpatient (IN) | payer MEDICARE ==
[~2022-11-20] VITALS: Ht 157.5 cm; Wt 119.0 kg
[~2022-11-20 11:03] MED LIST changes: +NATURAL IRON65 MG PO; +SYNTHROID0.125 MG/T PO; +VITAMIN D 400400 IU PO; +XIFAXAN550 MG PO
[2022-11-20 11:35] LABS: BASO % 0.1 % (0.0-2.0); EOS # 0.5 K/mm3 (0.0-0.7); EOS % 5.1 % (0.0-4.0); GRAN # 5.7 K/mm3 (1.4-6.5); HEMOGLOBIN 10.8 g/dl (12.5-16.0); LYMPH # 1.9 K/mm3 (1.2-3.4); LYMPH % 21.2 % (20.0-51.0); MEAN CELL VOLUME 104 fl (80.0-100.0); MEAN CORPUSCULAR HEMOGLOBIN 36 pg (27-31); MEAN CORPUSCULAR HGB CONC 34 g/dl (33.0-37.0); MEAN PLATELET VOLUME 9.9 fl (7.4-10.4); MONO # 0.8 K/mm3 (0.1-0.6); PLATELET COUNT 157 K/mm3 (130-400); RED BLOOD COUNT 3.02 M/mm3 (4.10-5.30); REDCELL DISTRIBUTION WIDTH-CV 16.1 % (11.5-14.5)
[2022-11-20 11:36] LABS: HEMATOCRIT 31.5 % (37.0-47.0)
[2022-11-20 11:51] LABS: ALBUMIN 2.7 gm/dL (3.4-4.8); BILIRUBIN,TOTAL 3.3 mg/dL (0.2-1.2); C-REACTIVE PROTEIN 0.3 mg/dL (0.00-0.50); CALCIUM 8.1 mg/dL (8.4-10.2); CREATININE, serum 0.72 mg/dL (0.57-1.11); TOTAL PROTEIN 5.7 gm/dL (6.2-8.1)
[2022-11-20 12:06] LABS: COLLECTION METHOD CLEAN CATCH
[2022-11-20 12:14] LABS: INR 1.4 (0.8-3.0); PROTHROMBIN TIME 15.8 SECONDS (9.7-12.8)
[2022-11-20 12:31] LABS: MUCOUS Present (NOT PRESENT); SQUAMOUS EPITHELIAL 0-2 /hpf (0-10); URINE BACTERIA Many /hpf (NONE SEEN); URINE RBC 0-2 /hpf (0-2)
[2022-11-20 12:32] LABS: URINE APPEARANCE Clear (CLEAR/HAZY); URINE BLOOD 1+ (NEGATIVE); URINE COLOR Yellow (YELLOW); URINE GLUCOSE Negative (NEGATIVE); URINE KETONE Negative (NEGATIVE); URINE NITRATE Positive (NEGATIVE); URINE PROTEIN(semi-quant) Negative (NEGATIVE)
[2022-11-20 14:30] VITALS: BP 113/57; PULSE 63; TEMP 97.8
--- NOTE | 2022-11-20 17:37 | NUR ---
NEW ADMIT FROM THE ED. PATIENT HAS BEEN COMPLAINING OF BLACK STOOLS, AFTER STOPPING HER IRON FOR 4 DAYS. PATIENT IS ON CLEAR LIQUID DIET. WILL HAVE EGD TOMORROW OF UPPER GI WITH POSSIBLE BIOPSY. CONSENTS ARE SIGNED. VSS. PATIENT WEARING PUREWICK DUE TO BEING ON MULTIPLE DIURETICS AND IS NOT WELL ENOUGH TO STAND UP ON HER OWN TO THE COMMODE. COMPLAINS OF BILAT FOOT PAIN FROM SWELLING. AXOX4. VSS. BED ALARM ON.
[2022-11-20 19:43] VITALS: BP 118/55; PULSE 75; TEMP 97.7
[2022-11-21] VITALS (13 sets, daily range): BP systolic 111–140; BP diastolic 51–60; PULSE 65–77; TEMP 97.9–98.8
--- NOTE | 2022-11-21 05:00 | NUR ---
ASSESSMENT COMPLETE FOR THREAD INSPECTOR. PT HAD DIARRHEA MOST OF SHIFT. PT NPO AT MIDNIGHT. FALL PRECAUTIONS IN PLACE. BED ALARM ON. CALL LIGHT WITHIN REACH.
[2022-11-21 10:04] LABS: BASO % 0.2 % (0.0-2.0); EOS # 0.4 K/mm3 (0.0-0.7); EOS % 5.6 % (0.0-4.0); GRAN % 60.1 % (42.2-75.2); HEMATOCRIT 26.6 % (37.0-47.0); HEMOGLOBIN 9.3 g/dl (12.5-16.0); LYMPH # 1.5 K/mm3 (1.2-3.4); LYMPH % 22.9 % (20.0-51.0); MEAN CELL VOLUME 102 fl (80.0-100.0); MEAN CORPUSCULAR HEMOGLOBIN 35 pg (27-31); MEAN CORPUSCULAR HGB CONC 35 g/dl (33.0-37.0); MEAN PLATELET VOLUME 9.8 fl (7.4-10.4); MONO # 0.7 K/mm3 (0.1-0.6); MONO % 10.6 % (1.7-9.3); PLATELET COUNT 126 K/mm3 (130-400); RED BLOOD COUNT 2.62 M/mm3 (4.10-5.30); REDCELL DISTRIBUTION WIDTH-CV 15.8 % (11.5-14.5)
--- NOTE | 2022-11-21 12:12 | NUR ---
Senior Technical Analyst rounds: Senior Technical Analyst visit attempted. Doctor was with Patient.
--- NOTE | 2022-11-21 14:22 | NUR ---
SERGIO charting reviewed, agree with documentation. Rufino Haro RN
--- NOTE | 2022-11-21 14:28 | NUR ---
JOB met with pt, Etienne and dtr Rita present in the room. Pt reports she lives at home with Etienne, and dtr Oneida at [phone]. Pt reports she has a walker and shower chair and is independent on ADLs. PCP is Marnei Blanchard and gets medications from [facility]. Pt reports she does not have a DPOA-HC and would like one made. JOB witness and gave copies to pt and placed one in the Pt chart. Pt daughter, Rita would like to speak to medicare advocate at the hospital [id number] with also questions about Social sercurity. DC: Home, pending PT/OT winnie
--- NOTE | 2022-11-21 17:23 | NUR ---
PATIENT DID WELL IN EGD TODAY. NO ISSUES AFTER ANESTHESIA. VSS. PATIENT IS SBA TO BEDSIDE COMMODE. MULTIPLE BMS TODAY INCONTINENT AND CONTINENT. PATIENT IS TAKING LACTULOSE FOR HIGH LIVER ENZYMES AND IS ON MIRALAX PREP FOR COLONOSCOPY 11/22. PATIENT IS NOT IMPULSIVE AND IS EATING ALL MEALS, THOUGH IS ON CLEAR LIQUID DIET UNTIL AFTER PROCEDURES. WILL CONTINUE TO MONITOR. BED ALARM ON.
[2022-11-22] VITALS (7 sets, daily range): BP systolic 97–129; BP diastolic 50–60; PULSE 59–75; TEMP 98
[2022-11-22 06:38] LABS: MEAN CELL VOLUME 103 fl (80.0-100.0); MEAN CORPUSCULAR HGB CONC 34 g/dl (33.0-37.0); MEAN PLATELET VOLUME 9.8 fl (7.4-10.4); PLATELET COUNT 132 K/mm3 (130-400); RED BLOOD COUNT 2.66 M/mm3 (4.10-5.30); REDCELL DISTRIBUTION WIDTH-CV 15.9 % (11.5-14.5)
[2022-11-22 06:44] LABS: HEMATOCRIT 27.3 % (37.0-47.0); HEMOGLOBIN 9.3 g/dl (12.5-16.0); MEAN CORPUSCULAR HEMOGLOBIN 35 pg (27-31)
--- NOTE | 2022-11-22 13:15 | NUR ---
SERGIO charting reviewed, agree with documentation. CATHRYN Joya Clinical Instructor
--- NOTE | 2022-11-22 16:17 | NUR ---
Patient is discharged to go home with family. IV is discontinued. Patient denies any pain or discomfort at this time. Discharge instructions are reviewed with patient and family. Patient is escorted to her vehicle via wheelchair by this nurse. Patient's family is with her.
== END 2022-11-22 16:15 | disposition home or self-care (01) | DRG 433 ==
LOC: COL.ER 11:03 → MEDICAL 12:34 → EDBEDREQ 13:18 → MEDICAL 11-22 16:15
PROVIDERS: Family Medicine; Internal Medicine Gastroenterology; ADMIT Internal Medicine
PROC: 0DJ08ZZ Inspection of Upper Intestinal Tract, Via Natural or Artificial Opening Endoscopic (ICD-10-PCS; 2022-11-21)
PROC: 0DJD8ZZ Inspection of Lower Intestinal Tract, Via Natural or Artificial Opening Endoscopic (ICD-10-PCS; principal; 2022-11-22 11:00)
DX: K74.60 Unspecified cirrhosis of liver (principal); A69.20 Lyme disease, unspecified; K92.1 Melena; K76.6 Portal hypertension; E72.20 Disorder of urea cycle metabolism, unspecified; I50.32 Chronic diastolic (congestive) heart failure; R18.8 Other ascites; Z68.42 Body mass index [BMI] 45.0-49.9, adult; Z66 Do not resuscitate; R32 Unspecified urinary incontinence; K31.819 Angiodysplasia of stomach and duodenum without bleeding; K31.89 Other diseases of stomach and duodenum; K75.81 Nonalcoholic steatohepatitis (NASH); E80.6 Other disorders of bilirubin metabolism; E03.9 Hypothyroidism, unspecified; E66.01 Morbid (severe) obesity due to excess calories; D64.9 Anemia, unspecified; I11.0 Hypertensive heart disease with heart failure; I48.91 Unspecified atrial fibrillation; Z98.51 Tubal ligation status; Z90.710 Acquired absence of both cervix and uterus; Z90.89 Acquired absence of other organs; Z88.8 Allergy status to other drugs, medicaments and biological substances; Z79.890 Hormone replacement therapy; Z79.82 Long term (current) use of aspirin
CPT/HCPCS: C9113; J2405; J2704; J2765; J3010; J7120

== ENCOUNTER 2023-09-09 16:27 | Inpatient (IN) | payer MEDICARE ==
[~2023-09-09] VITALS: Ht 157.5 cm; Wt 116.0 kg
[2023-09-09 17:23] LABS: EOS # 0.2 K/mm3 (0.0-0.7); EOS % 2.6 % (0.0-4.0); GRAN # 5.2 K/mm3 (1.4-6.5); GRAN % 69.7 % (42.2-75.2); HEMATOCRIT 39.8 % (37.0-47.0); HEMOGLOBIN 13.5 g/dl (12.5-16.0); LYMPH # 1.4 K/mm3 (1.2-3.4); LYMPH % 18.8 % (20.0-51.0); MEAN CELL VOLUME 100 fl (80.0-100.0); MEAN CORPUSCULAR HEMOGLOBIN 34 pg (27-31); MEAN CORPUSCULAR HGB CONC 34 g/dl (33.0-37.0); MEAN PLATELET VOLUME 9.2 fl (7.4-10.4); MONO # 0.6 K/mm3 (0.1-0.6); MONO % 8.1 % (1.7-9.3); PLATELET COUNT 221 K/mm3 (130-400); RED BLOOD COUNT 3.98 M/mm3 (4.10-5.30); REDCELL DISTRIBUTION WIDTH-CV 14.6 % (11.5-14.5)
[2023-09-09 17:31] LABS: INR 1.5 (0.8-3.0); PROTHROMBIN TIME 15.7 SECONDS (9.7-12.8)
[2023-09-09 17:38] LABS: ALBUMIN 2.7 gm/dL (3.4-4.8); BILIRUBIN,TOTAL 3.8 mg/dL (0.2-1.2); CALCIUM 8.7 mg/dL (8.4-10.2); CREATININE, serum 0.94 mg/dL (0.57-1.11); POTASSIUM 4.1 mmol/L (3.5-4.5); TOTAL PROTEIN 6.7 gm/dL (6.2-8.1)
[2023-09-09] MEDS ORDERED: cefTRIAXone 1 G in Water For Injection,Sterile 10 ML IV SCH (18:00)
[2023-09-09 18:02] LABS: PH 5.5 (5.0-8.5); URINE APPEARANCE Cloudy (CLEAR/HAZY); URINE COLOR Yellow (YELLOW); URINE GLUCOSE Negative (NEGATIVE); URINE PROTEIN(semi-quant) Negative (NEGATIVE)
[2023-09-09 18:03] LABS: MUCOUS Present (NOT PRESENT); URINE BACTERIA Many /hpf (NONE SEEN); URINE BLOOD Negative (NEGATIVE); URINE KETONE TRACE (NEGATIVE); URINE NITRATE Negative (NEGATIVE); URINE RBC 0-2 /hpf (0-2)
[2023-09-09] MEDS ORDERED: cefTRIAXone 2 G in Water For Injection,Sterile 20 ML IV ONE (18:30)
[2023-09-09] MEDS ORDERED: NS 1,000 ML IV ONE ×2 (18:30→20:45)
[2023-09-09] MEDS ORDERED: Acetaminophen 325 MG TAB PO PRN (18:45)
[2023-09-09] MEDS ORDERED: Albuterol/Ipratropium 3 MG-0.5 MG/3 ML Neb Soln IH PRN (18:45)
[2023-09-09] MEDS ORDERED: Ondansetron 4 MG/2 ML VIAL IV PRN (18:45)
[2023-09-09] MEDS ORDERED: Lactulose Oral Soln 10 GM/15 ML CUP PO SCH (21:00)
[2023-09-09] MEDS ORDERED: Spironolactone 25 MG TAB PO SCH (21:00)
[2023-09-09 21:09] VITALS: BP 135/47; PULSE 64; TEMP 97.5
--- NOTE | 2023-09-09 21:15 | NUR ---
Pt arrived to medical unit; room 356. She is A&Ox4. Admision and physical assessent were completed. LCTA. Abdomen with BS in all 4 quadrants, reports to this nurse that last BM was on 09/08. Pt has a RAC peripheral line. Fluids running at this time per orders. Pt reports having bladder incontinence. Pt also reports having her lower back and her bottom sore due to laying on her back for prolongued period of time in the ER. Pillow underneath her right side helped with the discomfort. Pt has glasses and has difficulty with bilateral hearing. RLE, thigh has some small abrassions that are currently healing. Pt reports that her daughter Oneida is her main contact and her # . VSS. Pt able to verbalize her needs. Belongings and call light are within reach.
[2023-09-09 23:59] VITALS: BP 133/58; PULSE 72; TEMP 98.2
[2023-09-10] VITALS (13 sets, daily range): BP systolic 93–133; BP diastolic 45–74; PULSE 73–87; TEMP 97.5–98.4
--- NOTE | 2023-09-10 06:25 | NUR ---
Pt had a moderate amount of hard black stool this morning. Pt had two episodes of bladder incontinence during this shift.
--- NOTE | 2023-09-10 07:52 | NUR ---
Bedside report recieved from KARLIE Loza. Pt is currently awake in bed with no complaints. Call light within reach.
--- NOTE | 2023-09-10 07:54 | NUR ---
I AGREE WITH THE ADULT ADMISSION ASSESSMENT COMPLETED BY BLAYNE VELASQUEZ LPN.
--- NOTE | 2023-09-10 08:42 | NUR ---
Shift assessment completed. Pt is awake in bed at this time visiting with family at bedside. Morning medications administered per EMAR. VSS. INT to Rt forearm patent with no redness, swelling, or drainage. Pt has no complaints of pain at this time. Pt has had incontinence of bowel movement. Pt has no request at this time. Call light within reach and fall precautions in place.
[2023-09-10 08:54] LABS: BASO % 0.1 % (0.0-2.0); EOS # 0.2 K/mm3 (0.0-0.7); EOS % 2.8 % (0.0-4.0); GRAN # 4.7 K/mm3 (1.4-6.5); GRAN % 64.4 % (42.2-75.2); LYMPH # 1.5 K/mm3 (1.2-3.4); LYMPH % 20.3 % (20.0-51.0); MEAN CELL VOLUME 101 fl (80.0-100.0); MEAN CORPUSCULAR HEMOGLOBIN 35 pg (27-31); MEAN CORPUSCULAR HGB CONC 34 g/dl (33.0-37.0); MEAN PLATELET VOLUME 9.2 fl (7.4-10.4); MONO # 0.9 K/mm3 (0.1-0.6); MONO % 11.9 % (1.7-9.3); PLATELET COUNT 186 K/mm3 (130-400); RED BLOOD COUNT 3.47 M/mm3 (4.10-5.30)
[2023-09-10 08:59] LABS: HEMATOCRIT 35.2 % (37.0-47.0)
[2023-09-10] MEDS ORDERED: Lactulose Oral Soln 10 GM/15 ML CUP PO SCH ×2 (09:00→14:00)
[2023-09-10] MEDS ORDERED: Furosemide 40 MG TAB PO SCH (09:00)
[2023-09-10 09:11] LABS: ALBUMIN 2.5 gm/dL (3.4-4.8); BILIRUBIN,TOTAL 3.3 mg/dL (0.2-1.2); CALCIUM 8.2 mg/dL (8.4-10.2); CREATININE, serum 0.82 mg/dL (0.57-1.11); MAGNESIUM 2.1 mg/dL (1.6-2.6); POTASSIUM 3.7 mmol/L (3.5-4.5); TOTAL PROTEIN 5.9 gm/dL (6.2-8.1)
[2023-09-10 11:05] LABS: COLLECTION METHOD CATHETER
--- NOTE | 2023-09-10 16:07 | NUR ---
Dr. Medina notified of pt recent blood pressure of 96/60. No new orders at this time. Call light within reach.
--- NOTE | 2023-09-10 16:48 | NUR ---
Clothing Designer met with patient to discuss discharge planning. Patient lives in [place] with her spouse, Archie along with her daughter Oneida, son in law Davonte, and two adult grandchildren. Patient advised she has no PCP at this time. Patient uses an electric wheelchair for ambulation and does report needing some assistance with ADLS, which her family provides. Patient does not drive and relies on her family for transportation. SW has DPOA-HC in EMR designating her spouse Etienne "Archie" and daughter, Oneida (ph#[phone]). SW contacted patient's daughter, Oneida who advised patient has Medicare PT A, but has never been able to get signed up for PT B despite their best effort. JOB consulted Linda Financial Counselor via email. Oneida confirmed she assists with ADLS and also cares for her father, Archie as she promised her parents not to place them in a senior living. Patient was seeing Marnie Blanchard APRN at [facility] but Oneida reports they are in the process of looking for a new provider as they were not happy with her care. JOB discussed PT recommendation, but that primary care would need to be established before Home Health could be set up. Oneida verbalized understanding. Discharge Plan: Home, needs set up with PCP, possibly Home Health once that is established.
--- NOTE | 2023-09-10 19:04 | NUR ---
Stool occult results notified to Keny BLACK by telephone. No new orders.
--- NOTE | 2023-09-10 21:30 | NUR ---
Patient getting back in bed from bathroom. Denies any pain or needs at this time. Assessment complete. IV in right forearm flushes easily with no complications. Call light and personal items in reach. Bed in low position and bed alarm on.
[2023-09-11] VITALS (12 sets, daily range): BP systolic 97–108; BP diastolic 57–70; PULSE 62–69; TEMP 97.5–98.1
--- NOTE | 2023-09-11 06:00 | NUR ---
Patient resting in bed. Denies any pain or needs this morning. No changes over night. Call light and personal items in reach. Bed in low position and bed alarm on.
--- NOTE | 2023-09-11 06:55 | NUR ---
Bedside report recieved from CATHRYN Bergeron. Pt is awake in bed with no complaints at this time. Call light within reach.
[2023-09-11 07:09] LABS: BASO % 0.1 % (0.0-2.0); EOS # 0.4 K/mm3 (0.0-0.7); EOS % 4.3 % (0.0-4.0); GRAN # 5.1 K/mm3 (1.4-6.5); GRAN % 58.3 % (42.2-75.2); HEMOGLOBIN 11.6 g/dl (12.5-16.0); LYMPH # 2.1 K/mm3 (1.2-3.4); LYMPH % 24.4 % (20.0-51.0); MEAN CELL VOLUME 100 fl (80.0-100.0); MEAN CORPUSCULAR HEMOGLOBIN 34 pg (27-31); MEAN CORPUSCULAR HGB CONC 34 g/dl (33.0-37.0); MEAN PLATELET VOLUME 9.4 fl (7.4-10.4); MONO # 1.1 K/mm3 (0.1-0.6); MONO % 12.4 % (1.7-9.3); PLATELET COUNT 181 K/mm3 (130-400); RED BLOOD COUNT 3.39 M/mm3 (4.10-5.30); REDCELL DISTRIBUTION WIDTH-CV 15.5 % (11.5-14.5)
[2023-09-11 07:15] LABS: HEMATOCRIT 33.9 % (37.0-47.0)
[2023-09-11 07:35] LABS: ALBUMIN 2.3 gm/dL (3.4-4.8); CREATININE, serum 0.79 mg/dL (0.57-1.11); MAGNESIUM 2.1 mg/dL (1.6-2.6); POTASSIUM 3.6 mmol/L (3.5-4.5); TOTAL PROTEIN 5.5 gm/dL (6.2-8.1)
--- NOTE | 2023-09-11 08:52 | NUR ---
Shift assessment completed. Pt is awake in bed eating breakfast at this time. VSS. Pt has had one loose incontinent stool this AM. Pt has no reports of pain at this time. Medications administered per emar. Pt has no request at this time. INT to Rt AC patent with no redness, swelling, or drainage. Call light within reach and fall precautions in place.
--- NOTE | 2023-09-11 15:47 | NUR ---
SW attempted to visit with patient on exploring if she had opporunity to review the PCP list. Patient was resting. SW will leave update with SW/team on exploring with patient and spouse on HH and/or SNF option.
--- NOTE | 2023-09-11 18:53 | NUR ---
Report given to CATHRYN Bergeron.
--- NOTE | 2023-09-11 20:15 | NUR ---
Patient resting in bed. Denies any pain at this time. Assissted patient to bathroom and back to bed, denies any other needs. Assessment complete. IV in right forearm flushes easily with no complications. Call light and personal items in reach. Bed in low position and bed alarm on.
[2023-09-12] VITALS (7 sets, daily range): BP systolic 104–120; BP diastolic 55–71; PULSE 68–75; TEMP 97.5–97.8
[2023-09-12 07:37] LABS: BASO % 0.1 % (0.0-2.0); EOS # 0.4 K/mm3 (0.0-0.7); EOS % 5.8 % (0.0-4.0); GRAN % 54.5 % (42.2-75.2); HEMATOCRIT 34.5 % (37.0-47.0); HEMOGLOBIN 11.8 g/dl (12.5-16.0); LYMPH % 26.9 % (20.0-51.0); MEAN CELL VOLUME 99 fl (80.0-100.0); MEAN CORPUSCULAR HEMOGLOBIN 34 pg (27-31); MEAN CORPUSCULAR HGB CONC 34 g/dl (33.0-37.0); MEAN PLATELET VOLUME 9.4 fl (7.4-10.4); MONO # 0.9 K/mm3 (0.1-0.6); MONO % 12.3 % (1.7-9.3); PLATELET COUNT 170 K/mm3 (130-400); RED BLOOD COUNT 3.47 M/mm3 (4.10-5.30); REDCELL DISTRIBUTION WIDTH-CV 15.4 % (11.5-14.5)
--- NOTE | 2023-09-12 08:00 | NUR ---
Patient is resting in bed, alert and oriented x 4, VSS, denies any pain at this time. Assessment completed, meds given. No further needs at this time. Call light within reach.
[2023-09-12 08:09] LABS: ALBUMIN 2.4 gm/dL (3.4-4.8); BILIRUBIN,TOTAL 2.9 mg/dL (0.2-1.2); CALCIUM 8.2 mg/dL (8.4-10.2); CREATININE, serum 0.73 mg/dL (0.57-1.11); POTASSIUM 3.7 mmol/L (3.5-4.5); TOTAL PROTEIN 5.8 gm/dL (6.2-8.1)
[2023-09-12] MEDS ORDERED: XIFAXAN550 MG PO (12:38)
[2023-09-12] MEDS ORDERED: LACTULOSE10 GM/153 PO (12:39)
[2023-09-12] MEDS ORDERED: Fosfomycin 3 G PACKET PO ONE (12:45)
[2023-09-12] MEDS ORDERED: Lactulose Oral Soln 10 GM/15 ML CUP PO SCH (13:00)
--- NOTE | 2023-09-12 14:23 | NUR ---
Patient was provided with discharge information, all questions answered. IV access and telemetry were discontinued.
--- NOTE | 2023-09-12 16:43 | NUR ---
home support worker was informed pt would need HH or SNF. Pt only has Medicare Part A insurance and is set to discharge today per Dr. Medina so she will not qualify for SNF. Pt does Part A insurance does not qualify for HH and she does not have a PCP to follow. List previosuly given by weekend worker. JOB spoke with Oneida shaw who reports the liver specialist attempted to contact the [employer] roto mixer operator to get coupons and has not followed up since. She reports that was a few months ago. JOB spoke with pharmacy [facility] who says they do not have coupons for that medication. JOB informed Fianancial Advisor pt needs an FAA for a FWW. She informed SW by the time she saw her, she had been discharged. JOB informed Dr. Medina pt does have a 4WW, dtr confirmed this on the phone. JOB Shell informed JOB that pt was declined for Medicaid. Discharge Plan: Home with family support
== END 2023-09-12 14:30 | disposition home or self-care (01) | DRG 689 ==
LOC: COL.ER 16:27 → MEDICAL 18:29
PROVIDERS: Hospitalist; Physician Assistant; ADMIT Internal Medicine
DX: N39.0 Urinary tract infection, site not specified (principal); G93.41 Metabolic encephalopathy; K76.82 Hepatic encephalopathy; I48.91 Unspecified atrial fibrillation; K74.60 Unspecified cirrhosis of liver; E03.9 Hypothyroidism, unspecified; R53.81 Other malaise
CPT/HCPCS: G0378; J0696; J7030

== ENCOUNTER 2023-11-15 13:32 | Observation (INO) | payer MEDICARE ==
[~2023-11-15] VITALS: Ht 152.4 cm; Wt 122.3 kg
[2023-11-15 14:12] LABS: EOS # 0.3 K/mm3 (0.0-0.7); EOS % 5.2 % (0.0-4.0); GRAN # 3.2 K/mm3 (1.4-6.5); HEMATOCRIT 42.4 % (37.0-47.0); HEMOGLOBIN 13.9 g/dl (12.5-16.0); LYMPH # 1.2 K/mm3 (1.2-3.4); LYMPH % 22.7 % (20.0-51.0); MEAN CELL VOLUME 102 fl (80.0-100.0); MEAN CORPUSCULAR HEMOGLOBIN 33 pg (27-31); MEAN CORPUSCULAR HGB CONC 33 g/dl (33.0-37.0); MEAN PLATELET VOLUME 11.1 fl (7.4-10.4); MONO # 0.5 K/mm3 (0.1-0.6); MONO % 9.7 % (1.7-9.3); PLATELET COUNT 128 K/mm3 (130-400); RED BLOOD COUNT 4.16 M/mm3 (4.10-5.30); REDCELL DISTRIBUTION WIDTH-CV 15.9 % (11.5-14.5)
[2023-11-15 14:24] LABS: ALANINE AMINOTRANSFERASE 24 U/L (0-55); ALBUMIN 2.6 gm/dL (3.4-4.8); ALKALINE PHOSPHATASE 126 U/L (40-150); ANION GAP 10 mmol/L (7-16); AST,SGOT 36 U/L (5-34); BILIRUBIN,TOTAL 2.8 mg/dL (0.2-1.2); BLOOD UREA NITROGEN 14 mg/dL (10-20); CALCIUM 8.5 mg/dL (8.4-10.2); CHLORIDE 110 mmol/L (98-107); CREATININE, serum 0.74 mg/dL (0.57-1.11); GLUCOSE 116 mg/dL (70-99); LIPASE 31 U/L (8-78); SODIUM 141 mmol/L (136-145); TOTAL PROTEIN 6.3 gm/dL (6.2-8.1)
[2023-11-15 14:30] LABS: TROPONIN-I < 0.010 ng/mL (0.00-0.033)
[2023-11-15 14:30] LABS: COLLECTION METHOD CLEAN CATCH
[2023-11-15 14:49] LABS: PH 7.5 (5.0-8.5); URINE APPEARANCE CLEAR (CLEAR/HAZY); URINE BLOOD NEGATIVE (NEGATIVE); URINE COLOR YELLOW (YELLOW); URINE GLUCOSE NEGATIVE (NEGATIVE); URINE KETONE NEGATIVE (NEGATIVE); URINE NITRATE NEGATIVE (NEGATIVE); URINE PROTEIN(semi-quant) NEGATIVE (NEGATIVE)
[2023-11-15] MEDS ORDERED: Polyethylene Glycol 3350 17 GM PDS PO PRN (16:30)
[2023-11-15] MEDS ORDERED: Docusate Sodium 100 MG CAP PO PRN (16:30)
[2023-11-15] MEDS ORDERED: Ondansetron 4 MG/2 ML VIAL IV PRN (16:30)
[2023-11-15] MEDS ORDERED: Lactulose Oral Soln 10 GM/15 ML CUP PO SCH (17:00)
[2023-11-15 18:00] VITALS: BP_SYST 110
--- NOTE | 2023-11-15 18:30 | NUR ---
PT ON THE FLOOR APPROX 1730 VIA STRETCHER. PT DENIES PAIN OR SHORTNESS OF BREATH AT THIS TIME. PT ORIENTED X4 AND INTAKE DONE. INT TO RIGHT FOREARM PATENT. BARKER DRAINING WITHOUT COMPLICATIONS. VITALS STABLE. PT ORIENTED TO ROOM. MED REC DONE PER CARPENTER HELPER. DINNER ORDERED AND PT DENIES NEEDS. BED IN LOWEST POSITION, CALL LIGHT IN REACH, BED ALARM ON
[2023-11-15 19:17] VITALS: BP 119/82; PULSE 85; TEMP 98.2
[2023-11-15 19:33] VITALS: BP 148/62; PULSE 65; TEMP 97.9
[2023-11-15] MEDS ORDERED: Spironolactone 25 MG TAB PO SCH (21:00)
[2023-11-15 21:34] VITALS: BP_SYST 148
--- NOTE | 2023-11-15 22:02 | NUR ---
ASSESSMENT COMPLETE. REAPPLIED SCDs. PROVIDED FRESH WATER AND EXTRA BLANKETS. DENIES ANY PAIN AT REST BUT IS REPORTING DISCOMFORT ON PALPATION OF BILATERAL LEGS. ADVISED PATIENT THAT WHEN SHE FEELS THE URGE TO HAVE A BOWEL MOVEMENT TO LET STAFF KNOW SO WE CAN ASSIST HER TO THE BEDSIDE COMMODE.
[2023-11-15 23:00] VITALS: BP 116/70; PULSE 69; TEMP 97.7
[2023-11-16] VITALS (8 sets, daily range): BP systolic 113–139; BP diastolic 66–76; PULSE 67–77; TEMP 97.7–98.4
--- NOTE | 2023-11-16 08:00 | NUR ---
Patient laying in bed, A&Ox3. VSS. IV CDI. Reports lower back pain. Patients HOB elevated, pillow to lower back. Rangel intact. SCD bilateral legs. Call light within reach. Bed alarm on
[2023-11-16 08:59] LABS: BASO % 0.2 % (0.0-2.0); EOS # 0.4 K/mm3 (0.0-0.7); EOS % 6.4 % (0.0-4.0); GRAN # 3.3 K/mm3 (1.4-6.5); GRAN % 55.3 % (42.2-75.2); HEMATOCRIT 39.7 % (37.0-47.0); HEMOGLOBIN 13.7 g/dl (12.5-16.0); LYMPH # 1.4 K/mm3 (1.2-3.4); LYMPH % 24.3 % (20.0-51.0); MEAN CORPUSCULAR HEMOGLOBIN 34 pg (27-31); MEAN CORPUSCULAR HGB CONC 35 g/dl (33.0-37.0); MEAN PLATELET VOLUME 10.5 fl (7.4-10.4); MONO # 0.8 K/mm3 (0.1-0.6); MONO % 13.5 % (1.7-9.3); PLATELET COUNT 127 K/mm3 (130-400); RED BLOOD COUNT 4.08 M/mm3 (4.10-5.30)
[2023-11-16 09:00] LABS: MEAN CELL VOLUME 97 fl (80.0-100.0)
[2023-11-16] MEDS ORDERED: Influenza Virus Vaccine, Hi-Dose Quad '23-24 (65 YR+) 0.7 ML SYRINGE IM SCH (09:00)
[2023-11-16] MEDS ORDERED: Furosemide 40 MG TAB PO SCH (09:00)
[2023-11-16] MEDS ORDERED: Ferrous Sulfate 325 MG TAB PO SCH (09:00)
[2023-11-16] MEDS ORDERED: Lidocaine 4% Topical Patch TP SCH (09:00)
[2023-11-16 09:07] LABS: INR 1.4 (0.8-3.0)
[2023-11-16 09:17] LABS: ALBUMIN 2.5 gm/dL (3.4-4.8); BILIRUBIN,TOTAL 2.8 mg/dL (0.2-1.2); CALCIUM 8.7 mg/dL (8.4-10.2); CREATININE, serum 0.7 mg/dL (0.57-1.11); POTASSIUM 3.8 mmol/L (3.5-4.5)
--- NOTE | 2023-11-16 12:47 | NUR ---
Initial visit; Patient thanked Restaurant Assistant Manager for looking in on her and offering God's blessings. Physical Therapy waiting outside of room so Chapplain wished Bianka well and will see her tomorrow for a visit and prayer.
--- NOTE | 2023-11-16 16:24 | NUR ---
Elevator Installer contacted Financial Counseling who advised patient has Medicare PT A. SW met with patient to discuss discharge planning. Patient stated she lives with her spouse, Archie along with her daughter, Oneida (ph#[phone]) and son in law, Davonte. Patient has recently seen Dr. Powell but can't remember the name of her PCP. Patient stated she has a walker at home but may need a wheelchair. Patient receives assistance with ADLS from her family and stated they also take her to medical appointments. Patient is unsure if she has DPOA-HC completed. Patient stated she wants to return home at time of discharge. SW attempted to contact patient's daughter, Oneida and left a message. Discharge Plan; Home
[2023-11-17] VITALS: BP 122/76; PULSE 77; TEMP 97.6
--- NOTE | 2023-11-17 03:56 | NUR ---
NURSING SHIFT ASSESSMENT COMPLETED. THE PATIENT WAS ALERT AND ORIENTED AND APPROPRIATE. THE PATIENT IS HAVING DIARRHEA CAUSED BY THE LACTULOSE. THE PATIENT IS INCONTINENT AT TIMES D/T URGENCY OF THE DIARRHEA. THE PLAN OF CARE AND EVENING MEDICATIONS REVIEWED. CALL LIGHT AND PERSONAL BELONGINGS WITHIN REACH. BED IN LOW POSITION AND BED ALARM ON.
[2023-11-17 05:00] VITALS: BP 125/65; PULSE 73; TEMP 97.7
[2023-11-17 06:58] LABS: EOS # 0.3 K/mm3 (0.0-0.7); EOS % 5.9 % (0.0-4.0); GRAN # 3.7 K/mm3 (1.4-6.5); GRAN % 66.3 % (42.2-75.2); HEMATOCRIT 41.7 % (37.0-47.0); HEMOGLOBIN 14.2 g/dl (12.5-16.0); MEAN CELL VOLUME 100 fl (80.0-100.0); MEAN CORPUSCULAR HEMOGLOBIN 34 pg (27-31); MEAN CORPUSCULAR HGB CONC 34 g/dl (33.0-37.0); MEAN PLATELET VOLUME 10.1 fl (7.4-10.4); MONO # 0.6 K/mm3 (0.1-0.6); MONO % 10.4 % (1.7-9.3); PLATELET COUNT 124 K/mm3 (130-400); RED BLOOD COUNT 4.17 M/mm3 (4.10-5.30); REDCELL DISTRIBUTION WIDTH-CV 15.9 % (11.5-14.5)
[2023-11-17 07:09] LABS: ALBUMIN 2.8 gm/dL (3.4-4.8); BILIRUBIN,TOTAL 2.9 mg/dL (0.2-1.2); CREATININE, serum 0.87 mg/dL (0.57-1.11); POTASSIUM 3.5 mmol/L (3.5-4.5); TOTAL PROTEIN 6.5 gm/dL (6.2-8.1)
[2023-11-17 07:23] VITALS: BP 125/63; PULSE 73; TEMP 98.1
[2023-11-17] MEDS ORDERED: LACTULOSE10 GM/153 PO (08:29)
[2023-11-17] MEDS ORDERED: LIDODERM 5% PATC1 EA TP (08:30)
[2023-11-17 09:00] VITALS: BP_SYST 125
--- NOTE | 2023-11-17 09:00 | NUR ---
PT LAYING IN BED UPON ENTERING. ASSESSMENT DONE, MEDS GIVEN PER ORDER. PT REPORTS BACK PAIN, LIDOCAINE PATCH APPLIED TO LOWER BACK. INT TO RIGHT HAND PATENT. PHARMACY AT BEDSIDE DURING ROUNDS, PT GIVEN AND EDUCATED ON DIFFERENT WAYS TO MEASURE LACTULOSE AT HOME. THIS NURSE REEDUCATED PT AND THESE, PT VERBALIZED UNDERSTANDING, WILL EDUCATE FAMILY AT DISCHARGE. PT DENIES NEEDS. BED IN LOWEST POSITION, CALL LIGHT IN REACH, BED ALARM ON
--- NOTE | 2023-11-17 10:38 | NUR ---
Follow-up visit: Patient is anxious about not being able to go home before Tuesday when her Grand son comes in from [place]. Bianka's nurse soothed her by mentioning she hasn't seen her DrXiomara yet and there may be better news. Patient sat up trying to stop coughing from her sinus infection. Patient appears to be very uncomfortable. Stain Dipper reminded her that she continues to keep her in her prayers as she mentioned she needed prayer but too much was happening at that time. Stain Dipper will continue to look in on Bianka.
--- NOTE | 2023-11-17 10:46 | NUR ---
Initial visit: Patient stated she was glad to see Math And Science Division Chair this morning and thanked Math And Science Division Chair for offering God's blessings and wished her a Happy Easter. Bianka was happy since she is being discharged home today.
--- NOTE | 2023-11-17 10:51 | NUR ---
IV AND TELE REMOVED. PT DRESSED IN PERSONAL CLOTHES, AT BEDSIDE. DISCHARGE INSTRUCTIONS GIVEN TO PT AND , EDUCATED ON DIFFERENT WAYS TO MEASURE LACTULOSE AND APPOINTMENTS. BOTH VERBALIZED UNDERSTANDING. PT DENIES NEEDS AND ESCORTED TO PERSONAL VEHICLE VIA WHEELCHAIR BY PCT.
--- NOTE | 2023-11-17 10:56 | NUR ---
Maintenance Team Leader spoke with service unit operator oil well who advised patient has a follow up scheduled with Dr. Thomson. advised patient missed a recent new patient appointment phone call, so made sure to provide updated contact information to Brian Barrientos. Patient's , Archie can be reached at [phone]. JOB contacted patient's daughter, Oneida to discuss discharge planning. Oneida is aware patient will be discharged home today. JOB and Oneida discussed patient's insurance situation. When patient turned 64, she did not realize she had to sign up for Pt B or that there would be a penalty. Patient is now 72 and Oneida advised she has been told patient's penalty is in the thousands, which they cannot afford. Patient also does not qualify for Medicaid because Archie has nearly $5,000 a month in income. Discharge Plan: Home
== END 2023-11-17 10:54 | disposition home or self-care (01) ==
LOC: COL.ER 13:32 → MEDICAL 15:52
PROVIDERS: Emergency Medicine; ADMIT Hospitalist
DX: K76.82 Hepatic encephalopathy (principal); A69.29 Other conditions associated with Lyme disease; I48.91 Unspecified atrial fibrillation; E80.6 Other disorders of bilirubin metabolism; E03.9 Hypothyroidism, unspecified; K92.2 Gastrointestinal hemorrhage, unspecified; R53.81 Other malaise; E66.01 Morbid (severe) obesity due to excess calories; D69.6 Thrombocytopenia, unspecified; R41.0 Disorientation, unspecified
CPT/HCPCS: G0008; G0378

== ENCOUNTER 2024-03-22 11:41 | Emergency (ER) | payer SELFPAY ==
[~2024-03-22] VITALS: Ht 157.5 cm; Wt 98.6 kg
[~2024-03-22 11:41] MED LIST changes: +LIDODERM 5% PATC1 EA TP
[2024-03-22 11:52] VITALS: TEMP 98
[2024-03-22] MEDS ORDERED: NORCO 325 MG-51 TAB PO ×2 (13:44→13:45)
[2024-03-22 13:56] LABS: BASO % 0.1 % (0.0-2.0); EOS # 0.1 K/mm3 (0.0-0.7); EOS % 0.9 % (0.0-4.0); GRAN # 11.2 K/mm3 (1.4-6.5); HEMATOCRIT 44.4 % (37.0-47.0); HEMOGLOBIN 14.1 g/dl (12.5-16.0); LYMPH # 1.2 K/mm3 (1.2-3.4); LYMPH % 8.2 % (20.0-51.0); MEAN CELL VOLUME 99 fl (80.0-100.0); MEAN CORPUSCULAR HEMOGLOBIN 31 pg (27-31); MEAN CORPUSCULAR HGB CONC 32 g/dl (33.0-37.0); MEAN PLATELET VOLUME 10.7 fl (7.4-10.4); MONO # 1.4 K/mm3 (0.1-0.6); MONO % 10.3 % (1.7-9.3); PLATELET COUNT 171 K/mm3 (130-400); REDCELL DISTRIBUTION WIDTH-CV 16.4 % (11.5-14.5)
[2024-03-22 14:20] LABS: ALBUMIN 2.8 g/dL (3.4-4.8); CALCIUM 9.2 mg/dL (8.4-10.2); CREATININE, serum 0.79 mg/dL (0.57-1.11); POTASSIUM 3.9 mEq/L (3.5-4.5); TOTAL PROTEIN 6.8 g/dl (6.2-8.1)
[2024-03-22] MEDS ORDERED: DOXYCYCLINE 10100 MG PO (15:03)
[2024-03-22 15:25] VITALS: BP 156/79; PULSE 62
== END 2024-03-22 15:30 | disposition home or self-care (01) ==
LOC: COL.ER 11:41
PROVIDERS: Physician Assistant
DX: L03.116 Cellulitis of left lower limb (principal); E66.01 Morbid (severe) obesity due to excess calories; Z79.82 Long term (current) use of aspirin; Z68.39 Body mass index [BMI] 39.0-39.9, adult